=== PATIENT | male | born 1985 | race Caucasian/White ===

== ENCOUNTER 2024-04-05 11:23 | Emergency (ER) | payer OTHER, SELFPAY ==
[2024-04-05 11:27] VITALS: BP 146/77
--- NOTE | 2024-04-05 12:41 | ED.GENMED ---
History of Present Illness
General
Chief Complaint: Musculo-Skeletal Complaint
Time Seen by Provider: 04/05/24 12:07
History of Present Illness
History of Present Illness:
38-year-old male presents the emergency department for evaluation of right shoulder and right wrist pain after falling last night. He also reports chronic ongoing left lower back pain radiating to the left groin and left thigh for 'a while'. He is
able to ambulate but having increasing difficulty doing so. No lower extremity paresthesias. No weight loss or night sweats
Past History
Past History
ED Past Medical History: Asthma
ED Past Surgical History: None
Social History
Tobacco: Non-smoker
Alcohol: Occasional
Personal: Single
Living: with family
Review of Systems
Review of Systems
Allergies reviewed?: Yes
All Other Systems: ROS reviewed and negative except as documented in HPI and ROS
Phy Exam
Physical Exam
Physical Exam:
GEN: Well appearing, NAD, WDWN
HEENT: Oral mucosa moist, no scleral icterus
Cardiac: Regular rate
Lung: No respiratory distress, no tachypnea
MSK: No gross deformity or injuries. Right shoulder range of motion limited by pain, passive range of motion is pain-free. 5 out of 5 strength to internal and external rotation, negative drop arm test. Left hip range of motion normal with no
elicited pain response. Positive straight leg raise on the left
Skin: Good color, no pallor or jaundice, no rashes
Neuro: AO x3, moves all extremities freely
Psych: Calm, cooperative
Course
Orders/Labs/Results
Orders:
Orders
04/05/24 11:29
CR Shoulder, Trauma - Right Urgent
Comment:
Reason For Exam: injury from fall
Wrist, Right 3 Views [CR Wrist - Right Min 3 Views] Urgent
Comment:
Reason For Exam: injury from fall
Vital Signs
Initial and Last Documented VS:
Initial Vital Signs
Temp Pulse Resp BP Pulse Ox
97.9 F 55 16 146/77 97
04/05/24 11:27 04/05/24 11:27 04/05/24 11:27 04/05/24 11:27 04/05/24 11:27
Last Documented Vital Signs
Temp Pulse Resp BP Pulse Ox
97.9 F 56 16 135/78 98
04/05/24 11:27 04/05/24 12:54 04/05/24 12:54 04/05/24 12:54 04/05/24 12:54
MDM/Problems Addressed
MDM/Problems Addressed:
In regards to the right shoulder injury x-rays are reassuring, no evidence for acute fracture. In regards to his ongoing low back pain this is likely lumbar radiculopathy, will encourage NSAIDs and orthopedic follow-up.
*Critical Care Note
Total Time (30-74mins, 75-104mins- exclusive of procedures): Not Applicable
ED Attending Note
-
Portions of this chart may have been created with voice recognition software.� Occasional wrong word or��sound alike� substitutions may have occurred due to the inherent limitations of voice recognition software.
Discharge Plan
Departure
Patient Disposition: Home (Routine Discharge)
Date of Disposition: 04/05/24
Time of Disposition: 12:42
Patient with high blood pressure during this ER visit?: No
Discharge Problem:
Sprain of right shoulder, Right wrist sprain, Chronic low back pain
Instructions: Sprain (DC)
Prescriptions:
New
celecoxib [Celebrex] 200 mg capsule
200 mg PO BID Qty: 20 0RF
No Action
sertraline 100 MG tablet
100 mg PO DAILY
Referrals:
Robert Mcpherson MD [Active] -
Activity Restrictions/Additional Instructions:
Discussed a lumbar spine MRI with your primary care physician
Take the Celebrex for the next 10 days to alleviate your pain. Do not take any [id number] ibuprofen/Aleve while on this medication
Discussed the potential benefit of physical therapy with your primary care physician
Interventions
Interventions:
*Risk Screen - Suicide Last Done: 04/05/24 11:29
*General Assessment Last Done: 04/05/24 12:20
*Neglect/Abuse Screening Last Done: 04/05/24 11:29
ED- Fall Risk Assessment Last Done: 04/05/24 12:54
*ED COVID-19 Vaccine History Last Done: 04/05/24 12:20
*Nursing Disposition Last Done: 04/05/24 12:54
ED-Musculoskeletal Assessment Last Done: 04/05/24 12:21
Discharge Date and Time
Discharge Date/Time: 04/05/24 12:55
Print Language: WELSH
[2024-04-05 12:54] VITALS: BP 135/78
== END 2024-04-05 12:55 | disposition home or self-care (01) ==
LOC: EMR 11:23
PROVIDERS: EMERGENCY PHYSICIAN Emergency Medicine; FAMILY PHYSICIAN Family Medicine
DX: S43.401A Unspecified sprain of right shoulder joint, initial encounter (principal); S63.501A Unspecified sprain of right wrist, initial encounter; G89.29 Other chronic pain; M54.50 Low back pain, unspecified; W19.XXXA Unspecified fall, initial encounter; J45.909 Unspecified asthma, uncomplicated
CPT/HCPCS: 99283; 73030; 73110

== ENCOUNTER → 2024-05-07 12:27 | Outpatient (REF) | payer OTHER, SELFPAY | LOC: HWRAD 12:27 | PROVIDERS: ATTENDING PHYSICIAN Nurse Practitioner Family | DX: R74.8 Abnormal levels of other serum enzymes (principal); J45.990 Exercise induced bronchospasm | CPT/HCPCS: 72110; 73502; 76700 ==